=== PATIENT | male | born 1960 | race Caucasian/White ===

== ENCOUNTER 2022-02-16 17:47 | Inpatient (IN) | payer MEDICAID, OTHER ==
[~2022-02-16] VITALS: Ht 162.6 cm; Wt 152.2 kg
[2022-02-16] MEDS ORDERED: MORPHINE SULFATE 4 MG/ML CPJ (NOT FOR IM USE) IV STA (19:22)
[2022-02-16] MEDS ORDERED: ONDANSETRON HCL 4MG/2ML INJ IV STA (19:22)
[2022-02-16] MEDS ORDERED: ONDANSETRON HCL 4MG/2ML INJ IV NR (19:22)
[2022-02-16] MEDS ORDERED: VANCOMYCIN 1G PREMIX 200 ML IV NR (19:30)
[2022-02-16] MEDS ORDERED: FUROSEMIDE 40MG/4ML VIAL IV NR (19:30)
[2022-02-16] MEDS ORDERED: MORPHINE SULFATE 4 MG/ML CPJ (NOT FOR IM USE) IV NR (19:30)
[2022-02-16] MEDS ORDERED: VANCOMYCIN 1G PREMIX 200 ML IV ONE (19:30)
[2022-02-16] MEDS ORDERED: NITROGLYCERIN OINT 1GM/INCH UDPKT TD NR (19:30)
[2022-02-16] MEDS ORDERED: PIPERACILLIN/TAZ 3.375G PREMIX 50 ML IV NR (19:30)
[2022-02-16] MEDS ORDERED: ASPIRIN 81MG TABLET PO ONE (19:30)
[2022-02-16] MEDS ORDERED: PIPERACILLIN/TAZ 3.375G PREMIX 50 ML IV ONE (19:30)
[2022-02-16] MEDS ORDERED: ASPIRIN 81MG TABLET PO NR (19:30)
[2022-02-16] MEDS ORDERED: FUROSEMIDE 40MG/4ML VIAL IV ONE (19:30)
[2022-02-16] MEDS ORDERED: NITROGLYCERIN OINT 1GM/INCH UDPKT TD ONE (19:30)
[2022-02-16 21:55] LABS: BASOPHILS % 0.8 % (0.0-2.0); EOSINOPHILS % 3.1 % (0.0-5.0); HEMATOCRIT. 39.3 % (42.0-52.0); HEMOGLOBIN. 12.5 g/dL (14.0-18.0); MEAN CORPUSCULAR HEMOGLOBIN 26.6 pg (28.0-32.0); MEAN CORPUSCULAR VOLUME 83.7 fL (80.0-94.0); MEAN PLATELET VOLUME 9.6 fl (7.4-10.4); MONOCYTES % 8.4 % (2.0-8.0); NEUTROPHILS % 73.7 % (40.0-76.0); PLATELET 307 x1000/uL (130-400); RED BLOOD CELL COUNT 4.69 mill/uL (4.7-6.1)
[2022-02-16 22:02] LABS: CHLORIDE 100 mEq/L (98-107)
[2022-02-16 22:05] LABS: D-DIMER 1.82 mg/L FEU (<0.50); INR 1.1; PARTIAL THROMBOPLASTIN TIME 27.1 sec (23.4-31.0); PROTHROMBIN TIME 11.4 sec (9.6-11.0)
[2022-02-16] MEDS ORDERED: ENOXAPARIN 150MG/ML SYR SUBCUT ONE (23:30)
[2022-02-17 02:28] LABS: CLARITY URINE CLEAR (CLEAR); COLOR URINE YELLOW (YELLOW); KETONES URINE NEGATIVE (NEGATIVE); LEUKOCYTE ESTERASE URINE NEGATIVE (NEGATIVE); NITRITE URINE NEGATIVE (NEGATIVE); OCCULT BLOOD URINE TRACE (NEGATIVE); PROTEIN URINE 3+ (NEGATIVE); SPECIFIC GRAVITY URINE 1.021 (1.005-1.030); UROBILINOGEN URINE 0.2 E.U./dL (0.2-1.0)
[2022-02-17 04:15] VITALS: BP 134/95
[2022-02-17 05:36] VITALS: BP 134/95
[2022-02-17] MEDS ORDERED: DEXTROSE 50% WATER 50ML SYRINGE IV PRN (06:45)
[2022-02-17] MEDS: BLOOD SUGAR DIAGNOSTIC STRIP TEST SCH ×4 (07:29→21:20)
[2022-02-17] MEDS: INSULIN LISPRO 100 UNITS/ML SUBCUT SCH ×4 (07:32→21:22)
[2022-02-17 08:00] VITALS: BP 112/70
[2022-02-17 09:33] LABS: BASOPHILS % 0.7 % (0.0-2.0); HEMATOCRIT. 35.2 % (42.0-52.0); HEMOGLOBIN. 11.1 g/dL (14.0-18.0); LYMPHOCYTES % 17.8 % (20.0-50.0); MEAN CORPUSCULAR HEMOGLOBIN 26.8 pg (28.0-32.0); MEAN CORPUSCULAR VOLUME 84.6 fL (80.0-94.0); MONOCYTES % 10.8 % (2.0-8.0); NEUTROPHILS % 65.7 % (40.0-76.0); RED BLOOD CELL COUNT 4.16 mill/uL (4.7-6.1); RED CELL DISTRIBUTION WIDTH 16.8 % (11.6-14.6)
[2022-02-17 09:38] LABS: CHLORIDE 102 mEq/L (98-107)
[2022-02-17 10:16] LABS: T4 FREE 1.21 ng/dL (0.76-1.46)
[2022-02-17] MEDS: AMLODIPINE 5MG TABLET PO SCH ×2 (11:00→13:10)
[2022-02-17 11:13] LABS: PLATELET 274 x1000/uL (130-400)
[2022-02-17 12:00] VITALS: BP 98/52
[2022-02-17] MEDS: VANCOMYCIN 1.25GM PMX (XELLIA) 250 ML IV SCH (13:10)
[2022-02-17] MEDS: PIPERACILLIN/TAZOBACTAM 3.375 G in DEXTROSE 5% WATER 50 ML IV SCH ×3 (13:11→23:39)
[2022-02-17 16:00] VITALS: BP 109/52
[2022-02-17 20:00] VITALS: BP 145/81
[2022-02-18] VITALS: BP 138/91
[2022-02-18 04:00] VITALS: BP 135/90
[2022-02-18] MEDS: VANCOMYCIN 1.25GM PMX (XELLIA) 250 ML IV SCH ×2 (04:26→20:45)
[2022-02-18] MEDS ORDERED: BISACODYL 5MG TABLET PO PRN (05:15)
[2022-02-18] MEDS ORDERED: ONDANSETRON HCL 4MG/2ML INJ IV PRN (05:15)
[2022-02-18] MEDS: PIPERACILLIN/TAZOBACTAM 3.375 G in DEXTROSE 5% WATER 50 ML IV SCH ×3 (05:31→21:15)
[2022-02-18] MEDS: INSULIN LISPRO 100 UNITS/ML SUBCUT SCH ×4 (06:25→21:14)
[2022-02-18] MEDS: BLOOD SUGAR DIAGNOSTIC STRIP TEST SCH ×4 (06:25→20:44)
[2022-02-18 06:55] LABS: CREATINE KINASE MB FRACTION 1.5 ng/mL (0.5-3.6)
[2022-02-18 08:00] VITALS: BP 133/80
[2022-02-18] MEDS: AMLODIPINE 5MG TABLET PO SCH (08:26)
[2022-02-18] MEDS: ENOXAPARIN 40MG/0.4ML SYR SUBCUT SCH ×2 (08:26→21:11)
[2022-02-18 12:00] VITALS: BP 131/85
[2022-02-18 16:00] VITALS: BP 135/75
[2022-02-18 18:45] LABS: HEMATOCRIT. 37.4 % (42.0-52.0); HEMOGLOBIN. 11.9 g/dL (14.0-18.0); MEAN CORPUSCULAR HEMOGLOBIN 27.1 pg (28.0-32.0); MEAN CORPUSCULAR VOLUME 85.1 fL (80.0-94.0); MEAN PLATELET VOLUME 9.5 fl (7.4-10.4); PLATELET 293 x1000/uL (130-400); RED BLOOD CELL COUNT 4.39 mill/uL (4.7-6.1); RED CELL DISTRIBUTION WIDTH 16.9 % (11.6-14.6)
[2022-02-18 19:19] LABS: CHLORIDE 100 mEq/L (98-107)
[2022-02-18 20:00] VITALS: BP 117/72
[2022-02-18] MEDS: FUROSEMIDE 40MG TABLET PO SCH (21:09)
[2022-02-18 21:37] LABS: PLATELET ESTIMATE NORMAL
[2022-02-19] VITALS: BP 136/79
[2022-02-19 04:00] VITALS: BP 149/74
[2022-02-19] MEDS: PIPERACILLIN/TAZOBACTAM 3.375 G in DEXTROSE 5% WATER 50 ML IV SCH ×3 (06:22→21:01)
[2022-02-19] MEDS: BLOOD SUGAR DIAGNOSTIC STRIP TEST SCH ×4 (06:41→21:02)
[2022-02-19] MEDS: INSULIN LISPRO 100 UNITS/ML SUBCUT SCH ×4 (06:49→21:05)
[2022-02-19 08:00] VITALS: BP 113/71
[2022-02-19] MEDS: AMLODIPINE 5MG TABLET PO SCH (08:59)
[2022-02-19] MEDS: FUROSEMIDE 40MG TABLET PO SCH (08:59)
[2022-02-19] MEDS: ENOXAPARIN 40MG/0.4ML SYR SUBCUT SCH ×2 (09:00→21:06)
[2022-02-19] MEDS: CARVEDILOL 3.125 MG TABLET PO SCH ×2 (09:00→21:02)
[2022-02-19] MEDS: LOSARTAN POTASSIUM 25 MG TABLET PO SCH (09:00)
[2022-02-19 11:36] VITALS: BP 126/80
[2022-02-19 12:06] LABS: BASOPHILS % 0.7 % (0.0-2.0); EOSINOPHILS % 4.3 % (0.0-5.0); HEMOGLOBIN. 12.1 g/dL (14.0-18.0); LYMPHOCYTES % 17.6 % (20.0-50.0); MEAN CORPUSCULAR HEMOGLOBIN 27.1 pg (28.0-32.0); MEAN CORPUSCULAR VOLUME 84.8 fL (80.0-94.0); MEAN PLATELET VOLUME 9.8 fl (7.4-10.4); MONOCYTES % 8.9 % (2.0-8.0); NEUTROPHILS % 68.5 % (40.0-76.0); PLATELET 286 x1000/uL (130-400); RED BLOOD CELL COUNT 4.47 mill/uL (4.7-6.1)
[2022-02-19 12:07] LABS: CHLORIDE 100 mEq/L (98-107)
[2022-02-19] MEDS: VANCOMYCIN 1.25GM PMX (XELLIA) 250 ML IV SCH (15:32)
[2022-02-19 15:43] VITALS: BP 138/79
[2022-02-19 20:00] VITALS: BP 135/86
[2022-02-20] VITALS: BP 119/77
[2022-02-20 04:00] VITALS: BP 143/89
[2022-02-20] MEDS: PIPERACILLIN/TAZOBACTAM 3.375 G in DEXTROSE 5% WATER 50 ML IV SCH (05:34)
[2022-02-20] MEDS: BLOOD SUGAR DIAGNOSTIC STRIP TEST SCH ×2 (05:47→12:53)
[2022-02-20] MEDS: INSULIN LISPRO 100 UNITS/ML SUBCUT SCH ×2 (05:52→12:53)
[2022-02-20 08:00] VITALS: BP 128/84
[2022-02-20] MEDS: CARVEDILOL 3.125 MG TABLET PO SCH (08:40)
[2022-02-20] MEDS: LOSARTAN POTASSIUM 25 MG TABLET PO SCH (08:40)
[2022-02-20] MEDS: FUROSEMIDE 40MG TABLET PO SCH (08:40)
[2022-02-20] MEDS: AMLODIPINE 5MG TABLET PO SCH (08:40)
[2022-02-20] MEDS: ENOXAPARIN 40MG/0.4ML SYR SUBCUT SCH (08:41)
[2022-02-20] MEDS: VANCOMYCIN 1.25GM PMX (XELLIA) 250 ML IV SCH (10:41)
[2022-02-20 12:00] VITALS: BP 135/88
[2022-02-20] MEDS ORDERED: CEPH500T MT (12:53)
[2022-02-20] MEDS ORDERED: AMLO5TAB88 PO (12:53)
[2022-02-20] MEDS ORDERED: FURO40TA5 PO (12:53)
[2022-02-20] MEDS ORDERED: COR3 PO (12:53)
[2022-02-20] MEDS ORDERED: LOSA25TA3 PO (12:53)
[2022-02-20 13:29] VITALS: BP 135/88
== END 2022-02-20 15:53 | disposition home or self-care (01) | DRG 383 ==
LOC: ER 17:47 → 8WST 23:51 → ENRESERV 02-17 01:46
PROVIDERS: ADMIT Family Medicine; ATTEND Family Medicine
DX: L03.115 Cellulitis of right lower limb (principal); E44.0 Moderate protein-calorie malnutrition; N17.9 Acute kidney failure, unspecified; I42.9 Cardiomyopathy, unspecified; Z68.43 Body mass index [BMI] 50.0-59.9, adult; I11.9 Hypertensive heart disease without heart failure; I87.2 Venous insufficiency (chronic) (peripheral); L03.116 Cellulitis of left lower limb; E11.9 Type 2 diabetes mellitus without complications; D64.9 Anemia, unspecified; E66.01 Morbid (severe) obesity due to excess calories; R79.89 Other specified abnormal findings of blood chemistry
CPT/HCPCS: 36415; 71045; 74176; 78580; 80048; 80053; 80061; 80202; 81003; 82550; 82553; 82962; 83036; 83605; 83735; 83880; 84145; 84439; 84443; 84484; 85025; 85379; 93005; 93306; 93970; 97162; 99285; J1650; J1815; J1940; J2270; J2405; J2543; J3370; J7060